=== PATIENT | female | born 1965 | race Caucasian/White ===

== ENCOUNTER 2017-05-19 06:54 | Inpatient (IN) ==
--- NOTE | 2017-05-16 13:32 | EKG Report ---
Stationary ECG Study [facility] Test Date: 05/16/2017 1:30 PM Pat Name: CORBY CARLSON Department: Room: Gender: F [employer]cery Caddy: KATT DIONNA [birth year] : 1965 Requested by: Olaf Rojas Order Number: [id number] Reading MD: GIAN BERKOWITZ Intervals [place] Rate: 81 P: 49 MT: 206 QRS: -9 QRSD: 109 T: 33 QT: 379 QTc: 417 Interpretive Statements SINUS RHYTHM ANTEROSEPTAL MYOCARDIAL INFARCTION, OF INDETERMINATE AGE Electronically Signed On 05-17-17 06:28:46 CDT by GIAN BERKOWITZ [email or web address]
[~2017-05-19 06:54] MED LIST: ACETAMINOPHEN 1,000 MG/100 ML VIAL IV ONE; ACETAMINOPHEN INJ 1,000 MG in PREMIX 1 EACH IV ONE; HEPARIN 5,000 UNIT/1 ML VIAL ONE; HYOSCYAMINE 0.125 MG TABLET ONE; HYOSCYAMINE 0.125 MG TABLET SL ONE; PANTOPRAZOLE 40 MG VIAL IV ONE; SCOPOLAMINE 1.5 MG PATCH TRANSDERM ONE; cefOXitin 3,000 MG in SODIUM CHLORIDE 0.9% 100 ML IV ONE
[2017-05-19] MEDS: LACTATED RINGERS 1,000 ML IV SCH ×3 (08:10→21:00)
[2017-05-19] MEDS ORDERED: FAMOTIDINE 20 MG TABLET PO ONE (09:39)
[2017-05-19] MEDS ORDERED: DIAZEPAM 5 MG TABLET PO ONE (09:40)
[2017-05-19] MEDS ORDERED: FAMOTIDINE 20 MG TABLET ONE (10:10)
[2017-05-19] MEDS ORDERED: DIAZEPAM 5 MG TABLET ONE (10:10)
[2017-05-19] MEDS ORDERED: LIDOCAINE 1%/EPI INJ 20 ML VIAL ONE (12:43)
[2017-05-19] MEDS ORDERED: BUPIVACAINE 0.25% 50 ML VIAL ONE (12:43)
[2017-05-19] MEDS ORDERED: BUPIVACAINE LIPOSOMAL 20 ML/266 MG VIAL ONE (12:43)
[2017-05-19] MEDS ORDERED: TISSUE ADHESIVE 1 EACH APPLICATOR TOP ONE ×2 (12:43→15:24)
[2017-05-19] MEDS ORDERED: KETOROLAC 30 MG/1 ML VIAL ONE (12:58)
[2017-05-19] MEDS ORDERED: NEOSTIGMINE 10 MG/10 ML VIAL ONE (12:58)
[2017-05-19] MEDS ORDERED: LIDOCAINE 100 MG/5 ML SYRINGE ONE (12:58)
[2017-05-19] MEDS ORDERED: GLYCOPYRROLATE 0.4 MG/2 ML VIAL ONE (12:58)
[2017-05-19] MEDS ORDERED: PROPOFOL 200 MG/20 ML VIAL IV ONE (12:58)
[2017-05-19] MEDS ORDERED: ROCURONIUM 100 MG/10 ML VIAL IV ONE (12:58)
[2017-05-19] MEDS ORDERED: SUCCINYLCHOLINE 200 MG/10 ML VIAL ONE (12:58)
[2017-05-19] MEDS ORDERED: ONDANSETRON 4 MG/2 ML VIAL ONE ×2 (12:58→16:39)
[2017-05-19] MEDS ORDERED: HYDROmorphone 2 MG/1 ML VIAL IV PRN (15:58)
[2017-05-19] MEDS ORDERED: hydrALAZINE 20 MG/1 ML VIAL IV PRN (15:58)
[2017-05-19] MEDS ORDERED: HYDROcod/ACETAMIN 7.5-325 MG/15 ML UDCUP PO PRN (15:58)
--- NOTE | 2017-05-19 16:08 | Operative Note ---
Date of procedure: 05/19/17 Pre-op diagnosis: Morbid obesity, coronary artery disease, sleep apnea Post-op diagnosis: same Procedure: Procedure performed: Robotically assisted laparoscopic vertical sleeve gastrectomy Procedure in detail: After informed consent was obtained, patient was taken operating suite and laid supine on the operating table. After general anesthesia induced abdomen was prepped and draped in usual sterile fashion. After procedural pause local anesthetic infiltrated in the skin and subcutaneous tissue to the left of the umbilicus. Incision was made and dissection carried down through skin and soft tissue. The fascia was divided and the rectus muscle retracted the posterior fascia and peritoneum were opened and blunt finger sweep revealed no adhesions. Toth trocar was placed under direct visualization pneumoperitoneum achieved and the camera was inserted. Bowel and mesentery were inspected and found to be free of any violation. Patient was placed in reverse Trendelenburg position. 8 mm and 5 mm trochars were placed in the left upper quadrant. A 12 mm and 8 mm trocar were placed in the right upper quadrant. The robotic arms were docked and I took control at the console. Dual blade was used to elevate the left lobe of the liver giving excellent exposure. Next identified a point along the greater curvature that was 6 cm from the pylorus and began dissecting the epigastric vessels and short gastrics all the way up to the cardia. They were divided using the vessel sealer. Next 40 [place] Vis[place] bougie was inserted and advanced into the stomach. It was positioned along the lesser curvature and suction was applied. The anterior and posterior elements of the body of the stomach came together very well. Next vertical sleeve gastrectomy was performed along the lateral edge of the groove created by the suction beginning along the greater curvature using a green load followed by blue loads all the way up to the cardia. Once the gastrectomy was complete the staple line was inspected and found to be completely intact with good hemostasis. There was a small area of bruising close to the staple line near the antral. I elected to imbricate this with a 2- 0 Prolene suture. There was excellent hemostasis. Staple line was then inverted beginning at the cardia using 2-0 Prolene running suture. Afterward the [place] bougie was removed. Instruments were removed and the robot was undocked. The abdomen was desufflated as the trochars were removed and the resected portion of stomach was brought through the Toth trocar site. The posterior fascia and peritoneum were closed using 0 Vicryl [id number] suture. Anterior fascia closed using 0 Vicryl [id number] suture. All wounds were irrigated and suctioned. The deep dermal layer closed with 3-0 Vicryl. 4-0 Monocryl used to close the skin. Sterile dressings applied and the patient was extubated and taken recovery room in stable condition. All lap and needle counts were correct at the end of the case. Anesthesia: MAC, local Surgeon / Physician: Zhao Melendez Estimated blood loss: other (Less than 10 cc) Specimens: other (Stomach) Condition: stable Disposition: PACU Discharge Plan - Discharge Medications No Action hydrOXYzine HCl [Hydroxyzine HCl] 25 mg PO DIRECTED Folic Acid Tab 1 tablet PO DAILY Loratadine 10 mg PO DIRECTED PRN PRN Reason: Allergy Symptoms LORazepam TAB [Ativan Tab] 0.5 mg PO DIRECTED PRN PRN Reason: Anxiety Furosemide Tab [Lasix Tab] 40 mg PO DAILY Ranolazine [Ranexa] 500 mg PO DAILY Metoprolol Succinate Xl [Toprol Xl] 100 mg PO DAILY Atorvastatin [Lipitor] 80 mg PO DAILY Aspirin [Ecotrin] 81 mg PO DAILY Clopidogrel [Plavix] 75 mg PO DAILY [place]-3S/Dha/Epa/Fish Oil [Fish Oil 1,200 mg Softgel] 1 each PO DAILY Triamcinolone 0.1% Oint [Kenalog Oint 0.1%] 1 applic TOP DIRECTED Omeprazole 40 mg PO DAILY Cholecalciferol [Vitamin D3] 1,000 unit PO DAILY Azilsartan Med/Chlorthalidone [Edarbyclor 40-25 mg Tablet] 1 each PO DAILY NIFEdipine [Nifedipine ER] 30 mg PO DAILY Multivit with Iron-Minerals [Multivitamins/Iron Chew Tab] 1 tablet PO BEDTIME - Follow Up or Referral - Forms/Instructions
--- NOTE | 2017-05-19 16:09 | Anesthesia Post-Op ---
Anesthesia Post OP - Post Ansesthetic Evaluation Patient seen in post op: Yes Resp: within normal limits CV: within normal limits Mental: within normal limits Temp: within normal limits Aazl-Bm-Ikssbattj: within normal limits Nausea and Vomiting: within normal limits Pain: within normal limits
[2017-05-19] MEDS ORDERED: fentaNYL 100 MCG/2 ML VIAL ONE (16:13)
[2017-05-19] MEDS ORDERED: ACETAMINOPHEN 1,000 MG/100 ML VIAL IV ONE (16:13)
[2017-05-19] MEDS ORDERED: MIDAZOLAM 2 MG/2 ML VIAL ONE (16:13)
[2017-05-19] MEDS ORDERED: SEVOFLURANE 1 UNIT/15 MINUTE INH ONE (16:13)
[2017-05-19] MEDS ORDERED: HYDROmorphone PCA 30 MG/30 ML SYRINGE IV ONE (16:14)
[2017-05-19] MEDS: ONDANSETRON 4 MG/2 ML VIAL IV PRN (16:43)
[2017-05-19] MEDS ORDERED: PROMETHAZINE 25 MG/1 ML VIAL ONE (16:55)
[2017-05-19] MEDS ORDERED: PROMETHAZINE INJ 12.5 MG in SODIUM CHLORIDE 0.9% 50 ML IV ONE (17:06)
[2017-05-19] MEDS: ceFAZolin 2,000 MG in PREMIX 1 EACH IV SCH (21:10)
[2017-05-19] MEDS: HYDROmorphone 2 MG/1 ML VIAL IV PRN (21:11)
[2017-05-19 21:35] LABS: Basophils % 0.1 % (0.0-0.8); Hemoglobin 12.1 GM/DL (12.0-16.0); Immature Granulocytes % 0.6 %; Immature Granulocytes Absolute 0.08 #; Lymphocytes # 0.7 10*3/uL (1.4-4.0); Lymphocytes % 5.3 % (21.3-54.2); Mean Corpuscular HGB Conc 34.6 GM/DL (32-36); Mean Corpuscular Hemoglobin 29 PG (27-34); Mean Corpuscular Volume 84.1 FL (87-102); Mean Platelet Volume 9.4 FL (9.6-12.0); Monocytes # 0.2 10*3/uL (0.11-0.8); Monocytes % 1.4 % (1.7-12.7); Neutrophils # 12.8 10*3/uL (1.4-7.4); Neutrophils % 92.6 % (38.7-73.9); Platelet Count 419 T/CUMM (130-400); Red Blood Count 4.16 MC/CUMM (3.8-5.5); Red Cell Distribution Width 14.7 % (9.3-17.3); White Blood Count 13.9 T/CUMM (4-12)
[2017-05-19 22:01] LABS: Calcium 9.1 MG/DL (8.5-10.1); Osmolality,Calculated 256.2 MOS/KG (273-304); Potassium 4.3 MMOL/L (3.5-5.1)
[2017-05-19 22:27] LABS: Lymphocytes 5 % (20-55); Platelet Estimate Increased; Segmented Neutrophils 95 % (50-85); Total Cells Counted 100
[2017-05-20] MEDS: LACTATED RINGERS 1,000 ML IV SCH ×4 (04:38→13:01)
[2017-05-20] MEDS: ONDANSETRON 4 MG/2 ML VIAL IV PRN (04:38)
[2017-05-20] MEDS: ceFAZolin 2,000 MG in PREMIX 1 EACH IV SCH (04:38)
[2017-05-20] MEDS: HYDROmorphone 2 MG/1 ML VIAL IV PRN ×2 (05:59→13:10)
[2017-05-20 06:06] LABS: Basophils % 0.1 % (0.0-0.8); Hematocrit 32.5 VOL% (35.7-47.0); Hemoglobin 11.2 GM/DL (12.0-16.0); Immature Granulocytes % 0.4 %; Immature Granulocytes Absolute 0.05 #; Lymphocytes # 1.5 10*3/uL (1.4-4.0); Lymphocytes % 13.2 % (21.3-54.2); Mean Corpuscular HGB Conc 34.5 GM/DL (32-36); Mean Corpuscular Hemoglobin 29 PG (27-34); Mean Corpuscular Volume 84.6 FL (87-102); Mean Platelet Volume 9.5 FL (9.6-12.0); Monocytes # 0.7 10*3/uL (0.11-0.8); Monocytes % 6.3 % (1.7-12.7); Neutrophils # 9.1 10*3/uL (1.4-7.4); Platelet Count 405 T/CUMM (130-400); Red Blood Count 3.84 MC/CUMM (3.8-5.5); Red Cell Distribution Width 15.2 % (9.3-17.3); White Blood Count 11.3 T/CUMM (4-12)
[2017-05-20 06:37] LABS: Calcium 8.5 MG/DL (8.5-10.1); Osmolality,Calculated 259.8 MOS/KG (273-304); Potassium 4.6 MMOL/L (3.5-5.1)
[2017-05-20] MEDS ORDERED: PANTOPRAZOLE 40 MG VIAL IV SCH (09:00)
--- NOTE | 2017-05-20 11:00 | Discharge Summary ---
Hospital Course - Hospital Course Hospital Course: Ms. Chaudhry is a 51-year-old white female with history of hypertension, CAD, morbid obesity, history of [place], obstructive sleep apnea admitted by Dr. Melendez on 05/19/2017 for vertical sleeve gastrectomy. The patient had undergone diet and exercise program under the supervision of [facility] and Dr. Malik Mullen. Patient underwent cardiac and psychology clearance. Patient was taken to the operating room on 05/19/2017 for robotically assisted laparoscopic vertical sleeve gastrectomy by Dr. Melendez. Postoperatively patient has done really well. Her pain is controlled and her blood pressure is under good control. She is ambulating in the room and she is tolerating her liquid diet. I have spoken with Dr. Malik Mullen and we have adjusted her medications for discharge. Patient will need to hold her Plavix for 3 days and it can be restarted on Tuesday. Dr. Melendez has given the patient prescriptions for pain, nausea, and gas in her previous preop appointment. Patient will be discharged home with a follow-up with Dr. Melendez next week and a follow-up with Dr. Mullen on Tuesday or Tuesday. Complete discharge instructions were given to the patient and her in the room. Care coordination, chart review, and completed discharge paperwork took approximately 47 minutes. - Time spent with patient Time with patient DS: Greater than 30 minutes Diagnosis - Discharge Diagnosis (1) Coronary artery disease Status: Chronic (2) Hypertension Status: Chronic (3) Morbid obesity Status: Chronic (4) Status post laparoscopic sleeve gastrectomy Status: Acute Discharge Plan - Discharge Data Disposition: Discharge Diet: other (Diet per Dr. Mullen) Activity: no lifting Hygiene: may shower Driving: other (No driving if taking pain medications) Contact your physician if you experience:: fever over 101, Nausea/Vomiting, pain uncontrolled by pain medications Wound / Dressing Care Instructions: Okay to shower daily with mild soap and water, pat dry, okay to leave open to the air - Discharge Medications New Metoprolol Tartrate Tab [Lopressor Tab] 25 mg PO DAILY #30 tablet Continue Loratadine 10 mg PO DIRECTED PRN PRN Reason: Allergy Symptoms LORazepam TAB [Ativan Tab] 0.5 mg PO DIRECTED PRN PRN Reason: Anxiety Ranolazine [Ranexa] 500 mg PO DAILY Aspirin [Ecotrin] 81 mg PO DAILY Triamcinolone 0.1% Oint [Kenalog Oint 0.1%] 1 applic TOP DIRECTED Omeprazole 40 mg PO DAILY Clopidogrel [Plavix] 75 mg PO DAILY #0 Discontinued hydrOXYzine HCl [Hydroxyzine HCl] 25 mg PO DIRECTED Folic Acid Tab 1 tablet PO DAILY Furosemide Tab [Lasix Tab] 40 mg PO DAILY Metoprolol Succinate Xl [Toprol Xl] 100 mg PO DAILY Atorvastatin [Lipitor] 80 mg PO DAILY [place]-3S/Dha/Epa/Fish Oil [Fish Oil 1,200 mg Softgel] 1 each PO DAILY Cholecalciferol [Vitamin D3] 1,000 unit PO DAILY Azilsartan Med/Chlorthalidone [Edarbyclor 40-25 mg Tablet] 1 each PO DAILY NIFEdipine [Nifedipine ER] 30 mg PO DAILY Multivit with Iron-Minerals [Multivitamins/Iron Chew Tab] 1 tablet PO BEDTIME - Follow Up or Referral Follow Up: Zhao Melendez MD [Physician] - 05/25/17 10:45 am (next wk ) Malik Mullen M.D. [Physician] - 06/03/17 3:00 pm (Tuesday or Tuesday next week ) - Forms/Instructions Additional Discharge Instructions: Restart Plavix on Tuesday Exam - Constitutional Vitals: Period Temp Pulse Resp BP Sys/Rowell Pulse Ox Last 24 Hr 97.4 F-98.3 F 60-81 16-20 102-149/53-82 96-100 Exam: 51-year-old white female, no acute distress, alert and oriented Chest clear CV regular rate and rhythm Abdomen obese, appropriately tender, incisions look good extremities no edema Discharge Results Labs on day of discharge: Labs from last 24 hours 05/20/17 05/20/17 05/19/17 05:38 05:38 21:17 WBC 11.3 RBC 3.84 Hgb 11.2 L Hct 32.5 L MCV 84.6 L MCH 29 MCHC 34.5 RDW 15.2 Plt Count 405 H MPV 9.5 L Neut % (Auto) 80.0 H Lymph % (Auto) 13.2 L Cocke % (Auto) 6.3 Eos % (Auto) 0.0 Baso % (Auto) 0.1 Neut # (Auto) 9.1 H Lymph # (Auto) 1.5 Cocke # (Auto) 0.7 Eos # (Auto) 0.0 Baso # (Auto) 0.0 Total Counted Immature Gran % 0.4 Nucleated RBC % 0.0 Immature Gran # 0.05 Segmented Neutrophils Lymphocytes Nucleated RBCs # 0.00 Platelet Estimate Immature Plt Fraction 0.0 Morphology Comment Sodium 130 L 127 L Potassium 4.6 4.3 Chloride 95 L 93 L Carbon Dioxide 27 26 Anion Gap 12.6 12.3 BUN 11 13 Creatinine 0.70 0.70 GFR Calculation 133 133 BUN/Creatinine Ratio 15.00 18.00 Glucose 109 H 126 H Calculated Osmolality 259.8 L 256.2 L Calcium 8.5 9.1 05/19/17 21:17 WBC 13.9 H RBC 4.16 Hgb 12.1 Hct 35.0 L MCV 84.1 L MCH 29 MCHC 34.6 RDW 14.7 Plt Count 419 H MPV 9.4 L Neut % (Auto) 92.6 H Lymph % (Auto) 5.3 L [place]ke % (Auto) 1.4 L Eos % (Auto) 0.0 Baso % (Auto) 0.1 Neut # (Auto) 12.8 H Lymph # (Auto) 0.7 L Cocke # (Auto) 0.2 Eos # (Auto) 0.0 Baso # (Auto) 0.0 Total Counted 100 Immature Gran % 0.6 Nucleated RBC % 0.0 Immature Gran # 0.08 Segmented Neutrophils 95 H Lymphocytes 5 L Nucleated RBCs # 0.00 Platelet Estimate Increased Immature Plt Fraction 0.0 Morphology Comment Sodium Potassium Chloride Carbon Dioxide Anion Gap BUN Creatinine GFR Calculation BUN/Creatinine Ratio Glucose Calculated Osmolality Calcium DS: Provider Date of admission: 05/19/17 06:54 Primary care physician: Melanie Da Silva MD Attending physician on admission: Zhao Melendez MD Consults: 05/19/17 15:58 Consult to Physician [CONS] Routine Comment: Dr. Malik Mullen Consulting Provider: Discharging clinician: ANTONELLA Solorio Expected date of discharge: 05/20/17
--- NOTE | 2017-05-20 11:06 | Event Note ---
Patient seen and examined. Afebrile vital signs stable. Minimal nausea. Patient is tolerating phase 1 diet. Her abdomen is soft appropriately tender nondistended and her pain appears very well controlled. She has been up and ambulating. She would like to go home. She had her preoperative prescription filled so that is ready. Discharge instructions were given. I will see her in 2 weeks. Instructed her to hold her Plavix until Tuesday but she can continue the aspirin. The remainder of her home medications will be addressed with Dr. Mullne prior to her discharge and she will be notified which ones to hold.
[2017-05-20 11:26] VITALS: BP 129/71
[2017-05-20] MEDS ORDERED: SIMETHICONE CHEW 80 MG TABLET PO SCH (15:58)
[2017-05-21] MEDS ORDERED: ENOXAPARIN 40 MG/0.4 ML SYRINGE SUBCUT SCH (09:00)
--- NOTE | 2017-05-23 12:17 | Pathology Report from [facility] ---
[facility] ACCESSION # : [id number] PATIENT NAME : Corby Carlson ORDERING DR : Zhao Melendez MD CLINICAL HX: Morbid obesity POST-OP DX: Same SPECIMEN INFO: Portion of stomach GROSS DESCRIPTION: The specimen is received in formalin labeled with the patients name CORBY CARLSON and is a portion of stomach measuring 21.5 x 4.0 cm. The serosa is smooth, pink-frost. Opening the specimen reveals grossly normal appearing red-frost mucosal folds. No masses or ulcerations appreciated. Exhibits Coordinator sections submitted in one cassette. DIAGNOSIS FOR CORBY CARLSON: STOMACH, ROBOTIC VERTICAL SLEEVE: Unremarkable gastric fundic-type mucosa. COLLECTED DATE: 05/20/2017 [facility] REPORT DATE: 05/23/2017 ELECTRONICALLY SIGNED BY: Adria Boone M.D. 05/23/2017 - 9:51:46 [facility]
== END 2017-05-20 16:45 | disposition home or self-care (01) | DRG 621 ==
LOC: N.SDSINP 06:54 → N.3E 17:49
PROVIDERS: ADMIT Surgery; ATTEND Surgery